=== PATIENT | male | born 1985 | race Caucasian/White ===

== ENCOUNTER 2016-07-23 14:46 | Inpatient (IN) | payer BC ==
[~2016-07-23] VITALS: Ht 177.8 cm; Wt 124.7 kg
[2016-07-23 15:25] LABS: HEMOGLOBIN 13.8 gm/dl (14.0-17.5); RED BLOOD COUNT 4.94 M/UL (4.20-5.50); WHITE BLOOD COUNT 14.2 K/UL (4.5-11.0)
== END 2016-07-23 22:00 | disposition expired | DRG 208 ==
LOC: ER1 14:46 → CCU 16:35 → ZEROF 16:35 → CCU 17:05
PROVIDERS: Emergency Medicine; ADMIT Internal Medicine
PROC: 5A1935Z Respiratory Ventilation, Less than 24 Consecutive Hours (ICD-10-PCS; principal; 2016-07-23)
PROC: 4A023N8 Measurement of Cardiac Sampling and Pressure, Bilateral, Percutaneous Approach (ICD-10-PCS; 2016-07-23)
DX: I26.09 Other pulmonary embolism with acute cor pulmonale (principal); J96.01 Acute respiratory failure with hypoxia; G93.1 Anoxic brain damage, not elsewhere classified; I46.9 Cardiac arrest, cause unspecified; D72.829 Elevated white blood cell count, unspecified; R55 Syncope and collapse; Z66 Do not resuscitate; Z51.5 Encounter for palliative care; R00.0 Tachycardia, unspecified
CPT/HCPCS: 36415; 36600; 70450; 71010; 80053; 81001; 82550; 82553; 82803; 83605; 83874; 84443; 84484; 85025; 85610; 85730; 87086; 93005; 94002; 96374; 96375; 99291; 99292; A4628; C1769; J0583; J1644; J7040; J7050; Q9965